=== PATIENT | female | born 1985 | race African-American/Black ===

== ENCOUNTER 2019-10-13 01:20 | Inpatient (IN) | payer OTHER ==
[2019-10-13 02:05] LABS: APPEARANCE,URINE SLIGHTLY-CLOUDY; BILIRUBIN,URINE NEGATIVE (NEGATIVE); COLOR,URINE YELLOW; GLUCOSE, URINE NEGATIVE (NEGATIVE); KETONES,URINE NEGATIVE (NEGATIVE); LEUKOCYTE ESTERASE,URINE TRACE (NEGATIVE); NITRITE,URINE NEGATIVE (NEGATIVE); PROTEIN,URINE NEGATIVE (NEGATIVE); URINE SPECIFIC GRAVITY 1.018
[2019-10-13] MEDS ORDERED: RINGERS SOLUTION,LACTATED 1,000 ML IV PRN (02:10)
[2019-10-13] MEDS ORDERED: OXYTOCIN/NORMAL SALINE 20 UNIT/1,000 ML RTUINJ ONE (02:23)
[2019-10-13] MEDS ORDERED: MISOPROSTOL 0.2 MG TABLET ONE (02:23)
[2019-10-13] MEDS ORDERED: LIDOCAINE 1% INJ-PF (10 MG/ML) 30 ML SDV ONE (02:23)
[2019-10-13] MEDS ORDERED: OXYTOCIN 10 UNIT/ML VIAL ONE (02:23)
[2019-10-13 02:27] LABS: URINE AMPHETAMINES SCREEN NEGATIVE; URINE BARBITURATES SCREEN NEGATIVE; URINE BENZODIAZEPINES SCREEN NEGATIVE; URINE COCAINE SCREEN NEGATIVE; URINE MARIJUANA (THC) SCREEN NEGATIVE; URINE METHADONE SCREEN NEGATIVE; URINE PHENCYCLIDINE SCREEN NEGATIVE
[2019-10-13 02:33] LABS: ABSOLUTE LYMPHOCYTES (AUTO) 1.2 10^3/uL (0.5-4.7); ABSOLUTE MONOCYTES (AUTO) 0.4 10^3/uL (0.1-1.4); ABSOLUTE NEUT (AUTO) 4.7 10^3/uL (1.7-8.2); BASOPHILS % (AUTO) 0.7 % (0-2); EOSINOPHILS % (AUTO) 0.1 % (0-6); HEMATOCRIT 38.9 % (36.0-47.0); HEMOGLOBIN 12.6 g/dL (12.0-15.5); LYMPHOCYTES % (AUTO) 18.9 % (13-45); MEAN CORPUSCULAR HGB CONC 32.5 g/dL (32.0-36.0); MEAN CORPUSCULAR VOLUME 71 fl (80-97); MONOCYTES % (AUTO) 6.8 % (3-13); PLATELET COUNT 257 10^3/uL (150-450); RED CELL DISTRIBUTION WIDTH 14.6 % (11.5-14.0); SEGMENTED NEUTROPHILS % (AUTO) 73.5 % (42-78); TOTAL CELLS COUNTED % (AUTO) 100 %; WHITE BLOOD COUNT 6.3 10^3/uL (4.0-10.5)
--- NOTE | 2019-10-13 03:30 | Admission Physical ---
Datetime Report Generated by CPN: 10/13/2019 03:30 CURRENT ADMISSION Chief Complaint: Uterine Contractions Indication for Induction: Not Applicable Admit Impression : Term, Intrauterine Admit Plan: Admit to Unit; Initiate Labor Protocol ALLERGIES Medication Allergies: influenza virus vaccine tri-split 2 (09/25/2013) OBSTETRICAL HISTORY EDC: 10/25/2019 00:00 : 2 Para: 1 Gestational Diabetes: No Rh Sensitization: No Incompetent Cervix: No ÁNGELA: No Infertility: No ART Treatment: No Uterine Anomaly: No IUGR: No Hx Previous C/S: Yes Macrosomia: No Hx Loss/Stillborn: No PIH: No Hx : No Placenta Previa/Abruption: No Depression/PP Depression: No PTL/PROM: No Post Hemorrhage: No Current Procedures: Ultrasound; NST Obstetrical History Comments: g1- breech - c/section. child with autism g2 - current pregnacy. desires TOL[facility] SEE RECORDS Alcohol: No Marijuana : No Cocaine: No Other Illicit Drugs: No Cigarettes: Never Smoker. [id number] MEDICAL HISTORY Diabetes: No Blood Transfusion: No Pulmonary Disease (Asthma, TB): No Breast Disease: No Hypertension: No Report Specialist Surgery: No Heart Disease: No Hosp/Surgery: No Autoimmune Disorder: No Anesthetic Complications: No Kidney Disease: No Abnormal Pap Smear: No Neuro/Epilepsy: No Psychiatric Disorders: No Other Medical Diseases: No Hepatitis/Liver Disease: No Significant Family History: No Varicosities/Phlebitis: No Trauma/Violence : No Thyroid Dysfunction: No INFECTIOUS HISTORY Gonorrhea: No Genital Herpes: No Chlamydia: No Tuberculosis: No Syphilis: No Hepatitis: No HIV/AIDS Exposure: No Rash or Viral Illness: No HPV: No PHYSICAL EXAM General: Normal HEENT: Normal Neurologic: Normal Thyroid: Normal Heart: Normal Lungs: Normal Breast: Deferred Back: Normal Abdomen: Normal Genitourinary Exam: Normal Extremities: Normal DTRs: Normal Pelvic Type: Adequate FETUS A EGA: 38.2 Monitoring: External US PLANS FOR LABOR AND DELIVERY Labor and Delivery: None Pain Management: Medications Feeding Preference: Breast Benefit of Breast Feed Discussed: Yes Circumcision: N/A INFORMED CONSENT Signature: with User ID: [email or web address]
[2019-10-13] MEDS ORDERED: OXYTOCIN/NORMAL SALINE 20 UNIT/1,000 ML RTUINJ IV PRN (04:00)
[2019-10-13] MEDS ORDERED: ZOLPIDEM TARTRATE 5 MG TABLET PO PRN (04:00)
[2019-10-13] MEDS ORDERED: PROMETHAZINE HCL 25 MG TABLET PO PRN (04:00)
[2019-10-13] MEDS ORDERED: BENZOCAINE/MENTHOL AEROSOL SPRAY 56 ML TOP PRN (04:00)
[2019-10-13] MEDS ORDERED: ACETAMINOPHEN 650 MG SUPP.RECT PR PRN (04:00)
[2019-10-13] MEDS ORDERED: DIPH/PERTUSS(ACELL)/TETANUS VAC/PF 0.5 ML SYR (>=10YO) IM PRN (04:00)
[2019-10-13] MEDS ORDERED: GLYCERIN/WITCH HAZEL LEAF 1 EACH MED..WIPE TP PRN (04:00)
[2019-10-13] MEDS ORDERED: DIPHENHYDRAMINE HCL 25 MG CAPSULE PO PRN (04:00)
[2019-10-13] MEDS ORDERED: MEASLES,MUMPS&RUBELLA VACC/PF 0.5 ML VIAL SUBCUT PRN (04:00)
[2019-10-13] MEDS ORDERED: MAGNESIUM HYDROXIDE SUSP 30 ML UDCUP PO PRN (04:00)
[2019-10-13] MEDS ORDERED: PROMETHAZINE HCL INJ 25 MG/1 ML VIAL IV PRN (04:00)
[2019-10-13] MEDS ORDERED: DIBUCAINE 1% OINTMENT 56 GM TP PRN (04:00)
[2019-10-13] MEDS ORDERED: PROMETHAZINE HCL 25 MG SUPP.RECT PR PRN (04:00)
[2019-10-13] MEDS ORDERED: ACETAMINOPHEN WITH CODEINE #3 TABLET PO PRN (04:00)
[2019-10-13] MEDS ORDERED: PSEUDOEPHEDRINE HCL 30 MG TABLET PO PRN (04:00)
[2019-10-13] MEDS ORDERED: NA PHOS,M-B/NA PHOS,DI-BA (ADULT) 133 ML ENEMA PR PRN (04:00)
[2019-10-13] MEDS: IBUPROFEN 800 MG TABLET PO SCH ×3 (07:17→21:22)
--- NOTE | 2019-10-13 09:37 | PDOC PROGRESS REPORT ---
Subjective-OB Progress Note for:: 10/13/19 Subjective: Doing well, no c/o, family at BS, , voiding, eating well Physical Exam (OB) Vital Signs: Temp Pulse Resp BP Pulse Ox 98.6 F 75 16 114/64 100 10/13/19 06:35 10/13/19 06:35 10/13/19 06:35 10/13/19 06:35 10/13/19 06:35 - PIH/Pre-Eclampsia DTR's: 2 + Clonus: Negative Headache: Absent Epigastric Pain: No Visual Changes: No - Lochia Lochia Amount: Moderate 25-50 ml Lochia Color: Rubra/Red - Abdomen Description: Soft, Round Fundal Description: Firm, Midline Fundal Height: u/u - u/2 Objective-Diagnostic Laboratory: 10/13/19 02:23 10/13/19 10/13/19 10/13/19 01:34 02:23 02:23 WBC 6.3 RBC 5.50 H Hgb 12.6 Hct 38.9 MCV 71 L MCH 23.0 L MCHC 32.5 RDW 14.6 H Plt Count 257 Seg Neutrophils % 73.5 Urine Color YELLOW Urine Appearance SLIGHTLY-CLOUDY Urine pH 6.0 Ur Specific [place] 1.018 Urine Protein NEGATIVE Urine Glucose (UA) NEGATIVE Urine Ketones NEGATIVE Urine Blood SMALL H Urine Nitrite NEGATIVE Ur Leukocyte Esterase TRACE H Blood Type B POSITIVE Antibody Screen NEGATIVE Assessment and Plan(PN) - Assessment and Plan (1) , delivered, current hospitalization Is this a current diagnosis for this admission?: Yes - Time Spent with Patient Time with patient: Less than 15 minutes Medications reviewed and adjusted accordingly: Yes - Disposition Anticipated Discharge: Home Within: within 24 hours
[2019-10-13] MEDS: FERROUS SULFATE 325 MG TABLET PO SCH ×2 (09:46→17:05)
[2019-10-13] MEDS: PRENATAL VITAMIN W DHA CAPSULE PO SCH (09:46)
[2019-10-13] MEDS: DOCUSATE SODIUM 100 MG CAPSULE PO SCH ×2 (09:46→17:05)
[2019-10-13] MEDS: FAMOTIDINE 20 MG TABLET PO SCH ×2 (09:46→21:22)
[2019-10-13] MEDS: SENNOSIDES/DOCUSATE 8.6-50 MG 1 EACH TABLET PO SCH (09:47)
[2019-10-13 19:46] VITALS: BP 118/75
[2019-10-14] MEDS: IBUPROFEN 800 MG TABLET PO SCH (05:22)
[2019-10-14 07:33] LABS: HEMOGLOBIN 10.7 g/dL (12.0-15.5); MEAN CORPUSCULAR HEMOGLOBIN 22.9 pg (27.0-33.4); MEAN CORPUSCULAR HGB CONC 32.3 g/dL (32.0-36.0); MEAN CORPUSCULAR VOLUME 71 fl (80-97); PLATELET COUNT 241 10^3/uL (150-450); RED BLOOD COUNT 4.67 10^6/uL (3.72-5.28); RED CELL DISTRIBUTION WIDTH 14.5 % (11.5-14.0); WHITE BLOOD COUNT 8.5 10^3/uL (4.0-10.5)
--- NOTE | 2019-10-14 09:08 | PDOC PROGRESS REPORT ---
Subjective-OB Progress Note for:: 10/14/19 - PP Day #1, doing well, no complaints, Pt desires to go home today if possible, B+, Rubella Immune, Physical Exam (OB) Vital Signs: Temp Pulse Resp BP Pulse Ox 98.4 F 87 16 118/75 99 10/13/19 19:45 10/13/19 19:45 10/13/19 19:45 10/13/19 19:45 10/13/19 19:45 Intake & Output 10/13/19 10/14/19 10/15/19 06:59 06:59 06:59 Intake Total 800 Balance 800 - General General Appearance: Appears well, Alert - PIH/Pre-Eclampsia DTR's: 2 + Clonus: Negative Headache: Absent Epigastric Pain: No Visual Changes: No - Lochia Lochia Amount: Scant < 10 ml Lochia Color: Rubra/Red - Abdomen Description: Soft Hernia Present: No Fundal Description: Firm, Midline Fundal Height: u/u - u/2 - Respiratory Respiratory Status: No respiratory distress - Abdominal Inspection: Normal Distension: No distension Tenderness: Nontender - Genitourinary Genitourinary Note: voiding - Extremities Upper extremity: Normal inspection Lower extremities: Normal inspection - Neurological Cognition: Normal Orientation: AAOx4 - Psychological Associated symptoms: Normal affect, Normal mood - Skin Skin Temperature: Warm Skin Moisture: Dry Objective-Diagnostic Laboratory: 10/14/19 07:05 10/14/19 07:05 WBC 8.5 RBC 4.67 Hgb 10.7 L Hct 33.0 L MCV 71 L MCH 22.9 L MCHC 32.3 RDW 14.5 H Plt Count 241 Assessment and Plan(PN) - Assessment and Plan (1) Normal course Is this a current diagnosis for this admission?: Yes (2) , delivered, current hospitalization Is this a current diagnosis for this admission?: Yes Plan:: ambulation encouraged, routine PP orders, may d/c home later on today if baby is able to go home - Time Spent with Patient Medications reviewed and adjusted accordingly: Yes - Disposition Anticipated Discharge: Home Within: within 24 hours
[2019-10-14] MEDS: FAMOTIDINE 20 MG TABLET PO SCH (10:42)
[2019-10-14] MEDS: SENNOSIDES/DOCUSATE 8.6-50 MG 1 EACH TABLET PO SCH (10:42)
[2019-10-14] MEDS: FERROUS SULFATE 325 MG TABLET PO SCH (10:42)
[2019-10-14] MEDS: DOCUSATE SODIUM 100 MG CAPSULE PO SCH (10:42)
[2019-10-14] MEDS: PRENATAL VITAMIN W DHA CAPSULE PO SCH (10:42)
--- NOTE | 2019-10-14 11:17 | PDOC DISCHARGE SUMMARY ---
Impression - Admit/DC Date/PCP Admission Date/Primary Care Provider: 10/13/19 02:09 SUZIE PATEL MD Discharge Date: 10/14/19 - pt desires to go home today - Discharge Diagnosis (1) Normal course Is this a current diagnosis for this admission?: Yes (2) , delivered, current hospitalization Is this a current diagnosis for this admission?: Yes - Additional Information Resuscitation Status: Full Code Discharge Diet: As Tolerated, Regular Discharge Activity: Activity As Tolerated, No Lifting Over 10 Pounds, Pelvic Rest Referrals: SUZIE PATEL MD [Primary Care Provider] - Prescriptions: Ibuprofen [Motrin 800 mg Tablet] 800 mg PO Q8 #60 tablet Home Medications: Pnv W-O Ca No5/Fe Fumarate/FA [-U Multiple Vitamin Capsule] 1 tab PO DAILY 09/19/13 Docusate Sodium [Colace 100 mg Capsule] 100 mg PO BID 09/27/13 Ibuprofen [Motrin 800 mg Tablet] 800 mg PO Q6 09/27/13 Oxycodone HCl/Acetaminophen [Percocet 5-325 mg Tablet] 1 tab PO Q4HP PRN 09/27/13 Ibuprofen [Motrin 800 mg Tablet] 800 mg PO Q8 #60 tablet 10/14/19 HPI Reason(s) for Admission: Onset of Labor Procedures: Ultrasound Intrapartum Procedure(s): Spontaneous Vaginal Delivery Intrapartum Procedure Note: Prior Complication(s): Laceration-Perineal Laceration-Degree: 1st Results Laboratory Results: WBC 8.5 10^3/uL (4.0-10.5) 10/14/19 07:05 RBC 4.67 10^6/uL (3.72-5.28) 10/14/19 07:05 Hgb 10.7 g/dL (12.0-15.5) L 10/14/19 07:05 Hct 33.0 % (36.0-47.0) L 10/14/19 07:05 MCV 71 fl (80-97) L 10/14/19 07:05 MCH 22.9 pg (27.0-33.4) L 10/14/19 07:05 MCHC 32.3 g/dL (32.0-36.0) 10/14/19 07:05 RDW 14.5 % (11.5-14.0) H 10/14/19 07:05 Plt Count 241 10^3/uL (150-450) 10/14/19 07:05 Lymph % (Auto) 18.9 % (13-45) 10/13/19 02:23 [place] % (Auto) 6.8 % (3-13) 10/13/19 02:23 Eos % (Auto) 0.1 % (0-6) 10/13/19 02:23 Baso % (Auto) 0.7 % (0-2) 10/13/19 02:23 Absolute Neuts (auto) 4.7 10^3/uL (1.7-8.2) 10/13/19 02:23 Absolute Lymphs (auto) 1.2 10^3/uL (0.5-4.7) 10/13/19 02:23 Absolute Monos (auto) 0.4 10^3/uL (0.1-1.4) 10/13/19 02:23 Absolute Eos (auto) 0.0 10^3/uL (0.0-0.6) 10/13/19 02:23 Absolute Basos (auto) 0.0 10^3/uL (0.0-0.2) 10/13/19 02:23 Seg Neutrophils % 73.5 % (42-78) 10/13/19 02:23 Urine Color YELLOW 10/13/19 01:34 Urine Appearance SLIGHTLY-CLOUDY 10/13/19 01:34 Urine pH 6.0 (5.0-9.0) 10/13/19 01:34 Ur Specific [place] 1.018 10/13/19 01:34 Urine Protein NEGATIVE mg/dL (NEGATIVE) 10/13/19 01:34 Urine Glucose (UA) NEGATIVE mg/dL (NEGATIVE) 10/13/19 01:34 Urine Ketones NEGATIVE mg/dL (NEGATIVE) 10/13/19 01:34 Urine Blood SMALL (NEGATIVE) H 10/13/19 01:34 Urine Nitrite NEGATIVE (NEGATIVE) 10/13/19 01:34 Urine Bilirubin NEGATIVE (NEGATIVE) 10/13/19 01:34 Urine Urobilinogen 2.0 mg/dL (<2.0) H 10/13/19 01:34 Ur Leukocyte Esterase TRACE (NEGATIVE) H 10/13/19 01:34 Urine Ascorbic Acid NEGATIVE (NEGATIVE) 10/13/19 01:34 Membranes Rupture POSITIVE (NEGATIVE) H 10/13/19 01:52 Urine Opiates Screen NEGATIVE 10/13/19 01:34 Urine Methadone Screen NEGATIVE 10/13/19 01:34 Ur Barbiturates Screen NEGATIVE 10/13/19 01:34 Ur Phencyclidine Scrn NEGATIVE 10/13/19 01:34 Ur Amphetamines Screen NEGATIVE 10/13/19 01:34 U Benzodiazepines Scrn NEGATIVE 10/13/19 01:34 Urine Cocaine Screen NEGATIVE 10/13/19 01:34 U Marijuana (THC) Screen NEGATIVE 10/13/19 01:34 RPR NONREACTIVE (NONREACTIVE) 10/13/19 02:23 Blood Type B POSITIVE 10/13/19 02:23 Antibody Screen NEGATIVE 10/13/19 02:23 Plan Plan of Treatment: d/c home, f/u with [facility] in 4 wks for PP check
--- NOTE | 2019-10-16 13:17 | Delivery Summary ---
Del Sum A-C Datetime Report Generated by CPN: 10/16/2019 13:16 DELIVERY PERSONNEL DELIVERY PERSONNEL: [id number] Delivery Doctor:: Nikos Fernandez MD Labor and Delivery Nurse:: Sosa Nelson RN Labor and Delivery Nurse:: Karis Pat RN Nursery Nurse:: Kayleen Mendez RN Capacity Manager/[facility]: Sophia Hernandez, ST MATERNAL INFORMATION Delivery Anesthesia: None Medications After Delivery: Pitocin Drip 20 Units/1000ml NSS Delivery QBL: 150 Maternal Complications: None LABOR SUMMARY EDC: 10/25/2019 00:00 No. Babies in Womb: 1 Attempted: Yes Labor Anesthesia: None LABOR INFORMATION Reason for Induction: Not Applicable Onset of Labor: 10/12/2019 22:00 Complete Dilatation: 10/13/2019 03:34 Oxytocin: N/A Group B Beta Strep: negative Antibiotics # of Doses: 0 Antibiotics Time of Last Dose: n/a Name of Antibiotic Given: n/a Steroids Given: None Reason Steroids Not Administered: Not Applicable MEMBRANES Membranes Rupture Method: Spontaneous Rupture of Membranes: 10/13/2019 00:00 Length of Rupture (hr): 3.68 Amniotic Fluid Color: Clear Amniotic Fluid Amount: Small Amniotic Fluid Odor: Normal STAGES OF LABOR Stage 1 hr: 5 Stage 1 min: 34 Stage 2 hr: 0 Stage 2 min: 7 Stage 3 hr: 0 Stage 3 min: 4 Total Time in Labor hr: 5 Total Time in Labor min: 45 VAGINAL DELIVERY Episiotomy: None Laceration #1: Perineal Laceration Extension #1: First Degree Laceration Repair Note: repaired with 2-0 vicryl Sponge Count Correct: N/A CSECTION DELIVERY Primary Indication: N/A Secondary Indication: N/A CSection Incision: N/A BABY A INFORMATION Delivery Date/Time: 10/13/2019 03:41 Method of Delivery: Vaginal Method of Delivery: Vaginal Born in Route : No : Successful Forceps: N/A Vacuum Extraction: N/A Shoulder Dystocia : No PRESENTATION/POSITION BABY A Presentation: Cephalic Cephalic Presentation: Vertex Vertex Position: Right Occipital Anterior Breech Presentation: N/A PLACENTA INFORMATION BABY A Placenta Delivery Time : 10/13/2019 03:45 Placenta Method of Delivery: Spontaneous Placenta Status: Delivered SCORES BABY A Heart Rate 1 min: >100 bpm Resp Effort 1 min: Good Cry Reflex Irritability 1 min: Cough or Sneeze or Pulls Away Muscle Tone 1 min: Active Motion Color 1 min: Blue/Pale Resuscitation Effort 1 min: Tactile Stimulation SCORE 1 MIN: 8 Heart Rate 5 min: >100 bpm Resp Effort 5 min: Good Cry Reflex Irritability 5 min: Cough or Sneeze or Pulls Away Muscle Tone 5 min: Active Motion Color 5 min: Body [place], Extremities Blue Resuscitation Effort 5 min: Tactile Stimulation SCORE 5 MIN: 9 INFANT INFORMATION BABY A Gestational Age at Delivery: 38.2 Gestational Status: Early Term- 37- 38.6 Weeks Outcome : Liveborn Condition : Stable Infant Sex: Female IDENTIFICATION BABY A Infant Verification Date/Time: 10/13/2019 03:59 ID Band Number: [id number] Mother's Name Verified: Yes RN Verifying : K Hussein RN/D Bellavance RN WEIGHT/LENGTH BABY A Birthweight (gm): 2633 Infant Weight (lb): 5 Weight (oz): 13 Length (in): 18.00 Infant Length (cm): 45.72 CORD INFORMATION BABY A Nuchal Cord : N/A Cord Blood Taken: Yes-For Storage (Mom's Blood type +) ASSESSMENT BABY A Infant Complications: None Physical Findings at Delivery: Within Normal Limits Transferred To: Remains with Mother BABY B INFORMATION : N/A SIGNATURES Signature: with User ID: [email or web address]
== END 2019-10-14 12:10 | disposition home or self-care (01) | DRG 807 ==
LOC: LC 01:20 → LR 02:09 → 2S 06:12
PROVIDERS: ADMIT Obstetrics & Gynecology Gynecology; ATTEND Obstetrics & Gynecology Gynecology
PROC: 10E0XZZ Delivery of Products of Conception, External Approach (ICD-10-PCS; principal; 2019-10-13)
DX: O34.219 Maternal care for unspecified type scar from previous cesarean delivery (principal); Z37.0 Single live birth; O70.0 First degree perineal laceration during delivery; Z3A.38 38 weeks gestation of pregnancy
CPT/HCPCS: 36415; 59025; 80307; 81005; 84112; 85025; 85027; 86592; 86850; 86900; 86901; J2590; J3490